=== PATIENT | male | born 1965 | race Caucasian/White ===

== ENCOUNTER 2019-06-18 06:37 | Day surgery (SDC) | payer BC ==
[~2019-06-18 06:37] MED LIST: Lactated Ringers 1,000 ML IV SCH; ceFAZolin 2 GM in Premix Bag 1 BAG IV ONE
[2019-06-18] MEDS ORDERED: Bupivacaine 0.25%/EPINEPHrine 1:200,000 10 ML SDV ONE (07:14)
[2019-06-18] MEDS ORDERED: Octyl 2-Cyanoacrylate 1 Tube ONE (07:14)
[2019-06-18] MEDS ORDERED: Ondansetron 4 MG/2 ML SDV ONE (07:17)
[2019-06-18] MEDS ORDERED: Propofol 200 MG/20 ML SDV ONE (07:18)
[2019-06-18] MEDS ORDERED: fentaNYL 100 MCG/2 ML SDV ONE (07:18)
--- NOTE | 2019-06-18 07:29 | PCM.PREANE ---
Preanesthetic Assessment - Anesthesia/Transfusion/Family Hx Anesthesia History: Prior Anesthesia Without Reaction Family History of Anesthesia Reaction: No Transfusion History: No Prior Transfusion(s) - Review of Systems General: No Symptoms Pulmonary: No Symptoms Cardiovascular: No Symptoms Gastrointestinal: No Symptoms Neurological: No Symptoms Other: Reports: None - Physical Assessment NPO Status Date: 06/17/19 Vital Signs: Last Vital Signs Temp 97.2 F 06/18/19 06:45 Pulse 83 06/18/19 06:45 Resp 15 06/18/19 06:45 BP 110/72 06/18/19 06:45 Pulse Ox 97 06/18/19 06:45 Height: 5 ft 5 in Weight: 76.657 kg ASA Class: 2 Mental Status: Alert & Oriented x3 Airway Class: Mallampati = 2 Dentition: Reports: Normal Dentition ROM/Head Extension: Full Lungs: Clear to Auscultation, Normal Respiratory Effort Cardiovascular: Regular Rate, Regular Rhythm - Allergies Allergies/Adverse Reactions: Allergies Allergy/AdvReac Type Severity Reaction Status Date / Time meclizine [From Antivert] Allergy Cannot Verified 06/13/19 10:42 Remember naproxen Allergy "passed Verified 06/13/19 10:42 out" - Blood Blood Available: No - Anesthesia Plan Pre-Op Medication Ordered: None - Acknowledgements Anesthesia Type Planned: General Anesthesia Pt an Appropriate Candidate for the Planned Anesthesia: Yes Alternatives and Risks of Anesthesia Discussed w Pt/Guardian: Yes Pt/Guardian Understands and Agrees with Anesthesia Plan: Yes Additional Comments: PMH: smoker PLAN: ga/lma to scavenge oxygen PreAnesthesia Questionnaire HEENT History: Reports: None Cardiovascular History: Reports: None Respiratory History: Reports: None Gastrointestinal History: Reports: None Genitourinary History: Reports: None Musculoskeletal History: Reports: None Neurological History: Reports: Other (See Below) Other Neuro History: head injury 20+ years ago Psychiatric History: Reports: None Endocrine/Metabolic History: Reports: None Hematologic History: Reports: None Immunologic History: Reports: None Oncologic (Cancer) History: Reports: Basal Cell Carcinoma Dermatologic History: Reports: None - Past Surgical History Head Surgeries/Procedures: Reports: None HEENT Surgical History: Reports: None Cardiovascular Surgical History: Reports: None Respiratory Surgical History: Reports: None GI Surgical History: Reports: None Male Surgical History: Reports: None Endocrine Surgical History: Reports: None Neurological Surgical History: Reports: None Musculoskeletal Surgical History: Reports: None Oncologic Surgical History: Reports: None Dermatological Surgical History: Reports: Other (See Below) - SUBSTANCE USE Smoking Status *Q: Current Every Day Smoker Tobacco Use Within Last Twelve Months: Cigarettes - HOME MEDS Home Medications: Home Meds . [No Known Home Meds] 06/13/19 [History] - CURRENT (IN HOUSE) MEDS Current Meds: Current Medications Lactated Ringer's (Ringers, Lactated) 1,000 mls @ 125 mls/hr IV ASDIRECTED FERNANDO Discontinued Medications Bupivacaine HCl/Epinephrine Bitart (Marcaine 0.25%/Epinephrine 1:200,000) Confirm Administered Dose 10 ml .ROUTE .STK-MED ONE Stop: 06/18/19 07:15 Fentanyl (Sublimaze) Confirm Administered Dose 100 mcg .ROUTE .STK-MED ONE Stop: 06/18/19 07:19 Cefazolin Sodium/Dextrose 2 gm (/ Premix) 50 mls @ 100 mls/hr IV ONETIME ONE Stop: 06/18/19 05:29 Octyl Cyanoacrylate (Dermabond Advance) Confirm Administered Dose 1 applic .ROUTE .STK-MED ONE Stop: 06/18/19 07:15 Ondansetron HCl (Zofran) Confirm Administered Dose 4 mg .ROUTE .STK-MED ONE Stop: 06/18/19 07:18 Propofol (Diprivan 20 Ml) Confirm Administered Dose 200 mg .ROUTE .STK-MED ONE Stop: 06/18/19 07:19
[2019-06-18] MEDS ORDERED: Midazolam 1 MG/ML 2 ML SDV ONE (07:38)
--- NOTE | 2019-06-18 08:50 | PCM.POSTAN ---
POST ANESTHESIA ASSESSMENT - MENTAL STATUS Mental Status: Alert - VITAL SIGNS Vital Signs: Last Vital Signs Temp 36.2 C 06/18/19 06:45 Pulse 83 06/18/19 06:45 Resp 15 06/18/19 06:45 BP 110/72 06/18/19 06:45 Pulse Ox 97 06/18/19 06:45 - RESPIRATORY Respiratory Status: Respiratory Rate WNL - CARDIOVASCULAR CV Status: Pulse Rate WNL - GASTROINTESTINAL GI Status: No Symptoms - PAIN Pain Score: 0 - POST OP HYDRATION Hydration Status: Adequate & Stable - OBSERVATIONS Free Text/Narrative:: Doing well.
--- NOTE | 2019-06-18 09:29 | PCM.OPNOTE ---
- General Post-Op/Procedure Note Date of Surgery/Procedure: 06/18/19 Operative Procedure(s): excisional biopsy face lesion Findings: skin lesion on l cheek, excised en bloc, sent for path; [id number] Pre Op Diagnosis: skin lesion Post-Op Diagnosis: Same Anesthesia Technique: General LMA Primary Surgeon: Max Amador Pathology: l check face lesion, short stitch medial/superior, and long stitch lateral/ inferior Complications: None Condition: Good Free Text/Narrative:: Intake & Output 06/17/19 06/18/19 06/18/19 22:59 06:59 14:59 Intake Total 900 Balance 900
--- NOTE | 2019-06-18 10:01 | PCM48HPAN ---
Post Anesthesia Note - EVALUATION WITHIN 48HRS OF ANESTHETIC Vital Signs in Normal Range: Yes Patient Participated in Evaluation: Yes Respiratory Function Stable: Yes Airway Patent: Yes Cardiovascular Function Stable: Yes Hydration Status Stable: Yes Pain Control Satisfactory: Yes Nausea and Vomiting Control Satisfactory: Yes Mental Status Recovered: Yes Vital Signs: Last Vital Signs Temp 97.3 F 06/18/19 08:35 Pulse 74 06/18/19 09:10 Resp 15 06/18/19 09:10 BP 98/54 L 06/18/19 09:10 Pulse Ox 98 06/18/19 09:10 - COMMENTS/OBSERVATIONS Free Text/Narrative:: direct back to phase 2 recovery
--- NOTE | 2019-06-18 15:21 | OR ---
SURGEON: Max Amador MD DATE OF PROCEDURE: 06/18/2019 PREOPERATIVE DIAGNOSIS: Skin lesion on the face. POSTOPERATIVE DIAGNOSIS: Skin lesion on the face. PROCEDURE PERFORMED: Excisional biopsy. PRIMARY SURGEON: Max Amador MD. COMPLICATIONS: None. FINDINGS: A raised border and crust-feeling face lesion, excised on the left cheek. The mass is 8 mm in the longest diameter and with a margin of 3 mm circumferential. Skin incision is 2.6 x 2.0 cm on the left cheek. PROCEDURE IN DETAIL: The patient was taken to the operating room and placed in supine position. Upon induction of general endotracheal anesthesia, the patient's face was prepped and draped in a sterile fashion. Time-out was being called, the patient identified, procedure identified, and 2 g IV Ancef given. Procedure then started. The patient's lesion was a little bit between the left cheek and the left naris, right in the middle. Following the Wandy line of the face crease, a fish-mouth incision was made. The raised border of lesion was about 8 mm in the longest diameter. The incision was made about 26 x 20 mm with 3 mm margin on the mass. Excised the mass, was sent for pathology and with orientation, short stitch on the medial superior and long stitch on the inferior lateral. Good hemostasis achieved by the use of electrocautery. Some mobilization of the skin was needed in order to close the wound and the wound was closed using 4-0 Ethilon followed with Steri-Strips. The patient was then awakened, extubated, and transferred to recovery in hemodynamically stable condition. The patient tolerated the procedure well. There were no intraoperative complications. Dr. Amador was present through the whole procedure. CHAY / MARTHA /[id number]
== END 2019-06-18 09:34 | disposition home or self-care (01) ==
LOC: MW.SDS 06:37
PROVIDERS: ATTEND Surgery
DX: C44.319 Basal cell carcinoma of skin of other parts of face (principal); F17.210 Nicotine dependence, cigarettes, uncomplicated; Z88.8 Allergy status to other drugs, medicaments and biological substances; Z88.6 Allergy status to analgesic agent
CPT/HCPCS: 11642; 88305; A9270; J2250; J2405; J2704; J3010; J3490; J7120